=== PATIENT | female | born 1980 | race Caucasian/White ===

== ENCOUNTER 2016-10-31 13:00 | Emergency (ER) | payer MEDICAID ==
[~2016-10-31] VITALS: Ht 170.2 cm; Wt 65.0 kg
[~2016-10-31 13:00] MED LIST: CIPR500T4 PO; PRED5TAB PO; PREM1.25 PO; SUBO8MIS SL
[2016-10-31 13:03] VITALS: BP 148/84; PULSE 83; RESP 20; TEMP 97.7; O2SAT 97
--- NOTE | 2016-10-31 13:06 | PD ---
Physical Exam Time Seen by Provider: 13:04 Narrative 36yo F c/o left sided chest pain w/ SOB and heart palpitations for about 4 hours. Denies radiation of pain. Patient seen in triage. Awaiting bed placement. VS reviewed. Data Data Last Documented VS Vital Signs Date Time Temp Pulse Resp B/P Pulse Ox O2 Delivery O2 Flow Rate FiO2 10/31/16 13:03 97.7 83 20 148/84 97 MDM Supervised Visit with LUÍS: Chinyere Herndon October 31, 2016 13:06
[2016-10-31] MEDS ORDERED: SUBO2MIS SL (13:26)
[2016-10-31] MEDS ORDERED: ASPIRIN 81 MG CHEW TAB PO ONE (13:30)
[2016-10-31] MEDS ORDERED: SODIUM CHLORIDE 0.9% FLUSH 10 ML FLUSH IVF PRN (13:30)
--- NOTE | 2016-10-31 13:36 | PD ---
HPI Chief Complaint: Chest Pain Time Seen by Provider: 13:30 Travel History International Travel<30 days: No Contact w/Intl Traveler<30days: No Traveled to known affect area: No History of Present Illness HPI Patient comes in complaining of left-sided chest pain that that began this morning. Patient describes it as a pressure/palpitation and is constant. Pain is worse with certain movement. Denies anything making it better. Patient taking anything for this. Denies any nausea, vomiting, back pain, abdominal pain, headache, diaphoresis, fevers, numbness or tingling anywhere, hormone replacement therapy, or history of cardiac disease. Patient states only medication she takes on a daily basis is for Suboxone for opioid dependence. Patient denies a history of IV drug use. PFSH Past Medical History Hx Anticoagulant Therapy: No Cardiovascular Problems: No Chemotherapy: No Cerebrovascular Accident: No Diabetes: No Respiratory: No ?: Not : 3 Para: 2 Miscarriage: 1 Tubal Ligation: Yes Past Surgical History Gynecologic Surgery: Yes (ABLATIONS AND SURGERY FOR ENDOMETRIOSIS) Hysterectomy: Yes Social History Alcohol Use: Yes (GLASS WINE ON WEEKENDS) Tobacco Use: Yes (1 PACK EVERY 3 DAYS) Substance Use: No Allergies-Medications (Allergen,Severity, Reaction): Coded Allergies: No Known Allergies (Unverified , 01/17/15) Reported Meds & Prescriptions Reported Meds & Active Scripts Active Reported Suboxone Sublingual Film (Buprenorphine-Naloxone Sublingual Film) 2-0.5 Mg Film 1 Film SL DAILY Unique ID number required: Review of Systems Except as stated in HPI: all other systems reviewed are Neg Physical Exam Narrative GENERAL: Well-developed, well nourished, in no acute distress, and non-ill appearing. SKIN: Focused skin assessment warm and dry. HEAD: Atraumatic. Normocephalic. EYES: Pupils equal and round. EOMI. No scleral icterus. No injection or drainage. ENT: No nasal bleeding or discharge. Mucous membranes pink and moist. NECK: Trachea midline. No JVD. Supple. No nuclear rigidity. CARDIOVASCULAR: Regular rate and rhythm. No murmur appreciated. Radial pulses 2+, intact, and equal bilaterally. RESPIRATORY: No accessory muscle use. No respiratory distress. Clear to auscultation. Breath sounds equal bilaterally. MUSCULOSKELETAL: No obvious deformities. No clubbing. No cyanosis. No edema. Full range of motion. NEUROLOGICAL: Awake and alert. No obvious cranial nerve deficits. Motor grossly within normal limits. Normal speech. PSYCHIATRIC: Appropriate mood and affect; insight and judgment normal. Data Data Last Documented VS Vital Signs Date Time Temp Pulse Resp B/P Pulse Ox O2 Delivery O2 Flow Rate FiO2 10/31/16 16:39 80 16 119/83 99 10/31/16 13:55 Room Air 10/31/16 13:03 97.7 Orders Electrocardiogram (10/31/16 13:29) Basic Metabolic Panel (Bmp) (10/31/16 13:29) Ckmb (Isoenzyme) Profile (10/31/16 13:29) Complete Blood Count With Diff (10/31/16 13:29) D-Dimer (10/31/16 13:29) Magnesium (Mg) (10/31/16 13:29) Prothrombin Time / Inr (Pt) (10/31/16 13:29) Act Partial Throm Time (Ptt) (10/31/16 13:29) Troponin I (10/31/16 13:29) Chest, Single Ap (10/31/16 13:29) Ecg Monitoring (10/31/16 13:29) Bilateral Bp Monitoring (10/31/16 13:29) Iv Access Insert/Monitor (10/31/16 13:29) Oximetry (10/31/16 13:29) Oxygen Administration (10/31/16 13:29) Aspirin Chew (Aspirin Chew) (10/31/16 13:30) Sodium Chloride 0.9% Flush (Ns Flush) (10/31/16 13:30) CKMB (10/31/16 13:30) CKMB% (10/31/16 13:30) Electrocardiogram (10/31/16 15:15) Ckmb (Isoenzyme) Profile (10/31/16 15:15) Troponin I (10/31/16 15:15) CKMB (10/31/16 16:10) CKMB% (10/31/16 16:10) Labs Laboratory Tests Test 10/31/16 10/31/16 13:30 16:10 White Blood Count 9.5 TH/MM3 Red Blood Count 4.75 MIL/MM3 Hemoglobin 14.7 GM/DL Hematocrit 44.3 % Mean Corpuscular Volume 93.5 FL Mean Corpuscular Hemoglobin 31.1 PG Mean Corpuscular Hemoglobin 33.2 % Concent Red Cell Distribution Width 13.3 % Platelet Count 193 TH/MM3 Mean Platelet Volume 8.8 FL Neutrophils (%) (Auto) 47.3 % Lymphocytes (%) (Auto) 43.0 % Monocytes (%) (Auto) 7.0 % Eosinophils (%) (Auto) 2.0 % Basophils (%) (Auto) 0.7 % Neutrophils # (Auto) 4.5 TH/MM3 Lymphocytes # (Auto) 4.1 TH/MM3 Monocytes # (Auto) 0.7 TH/MM3 Eosinophils # (Auto) 0.2 TH/MM3 Basophils # (Auto) 0.1 TH/MM3 CBC Comment DIFF FINAL Differential Comment Prothrombin Time 10.5 SEC Prothromb Time International 1.0 RATIO Ratio Activated Partial 27.1 SEC Thromboplast Time D-Dimer Quantitative (PE/DVT) 0.47 MG/L FEU Sodium Level 135 MEQ/L Potassium Level 3.4 MEQ/L Chloride Level 97 MEQ/L Carbon Dioxide Level 29.7 MEQ/L Anion Gap 8 MEQ/L Blood Urea Nitrogen 12 MG/DL Creatinine 0.79 MG/DL Estimat Glomerular Filtration 81 ML/MIN Rate Random Glucose 85 MG/DL Calcium Level 10.3 MG/DL Magnesium Level 2.0 MG/DL Total Creatine Kinase 483 U/L 379 U/L Creatine Kinase MB 13.9 NG/ML 11.4 NG/ML Creatine Kinase MB % 2.9 % 3.0 % Troponin I LESS THAN 0.02 LESS THAN 0.02 NG/ML NG/ML MDM Medical Decision Making Medical Screen Exam Complete: Yes Emergency Medical Condition: Yes Interpretation(s) EKG reviewed by Dr. Smith shows sinus rhythm with a ventricular rate of 74. No STEMI. Chest x-ray read by the radiologist: Normal examination. Repeat EKG reviewed by Dr. Smith shows sinus rhythm with ventricular is 76. No STEMI. Differential Diagnosis Acute coronary syndrome, atypical chest pain, PE, pneumonia, musculoskeletal pain, other Narrative Course Patient was placed on monitoring manager, IV was established, EKG is obtained, and patient was given aspirin by mouth. Initial laboratory and radiological studies were ordered. 1500 patient resting comfortably in bed in no acute distress. Reports symptoms have improved greatly since being in the emergency department. Discussed all findings and plan of care for repeat troponin and EKG and if found to be negative patient will be discharged home for outpatient follow-up. Patient is agreeable to this. All questions were answered. The patients chest pain by history and evaluation appears noncardiac, nor noncardiopulmonary in etiology. Evaluation revealed no evidence of cardiac involvement at this time. There is no clinical evidence to suggest thoracic aortic aneurysm or pathology, nor evidence to suggest pulmonary embolism, pericarditis, pneumothorax, nor pneumonia at this time. The patient has minimal risk factors for cardiac disease, pulmonary embolism or aortic disease. Clinical suspicion was discussed with patient and the patient was referred to and instructed to follow up with primary care doctor for possible medical management specialist referral for potential outpatient evaluation. I discussed this management with the patient and the patient understands the importance or acute follow up with primary care provider. The patient was instructed to return at any time if chest pain recurs, persists, changes or worsens in anyway while awaiting follow up. The patient agreed with plan. Patient in no obvious distress upon re-evaluation. All pertinent laboratory/ Radiology result(s) discussed with patient. Discussed patient with Dr. Smith prior to discharge, who is in agreement with plan of care and disposition. Any questions/concerns in reference to patient diagnosis/condition discussed and clarified prior to patient's discharge. Reinforced sheer importance of close follow up with patient's primary physician or primary care clinic. Instructed patient to return to ED immediately, if symptoms return/worsen. Pt showed understanding of above instructions. Further instructions and recommendations were detailed in discharge paperwork. Pt ambulated without difficulty out of ED at discharge. Diagnosis Primary Impression: Chest pain, non-cardiac Patient Instructions: General Instructions, Noncardiac Chest Pain (ED) Additional Instructions: Follow-up with your primary care physician in one to 4 days for reevaluation. Take all medication as prescribed. Return to the emergency department if symptoms get worse. Disposition: 01 DISCHARGE HOME Condition: Stable Garett Nye October 31, 2016 13:35
[2016-10-31 13:42] VITALS: BP_SYST 154; BP_SYST 160; BP_DIAS 89; BP_DIAS 96; PULSE 79; O2SAT 97
--- NOTE | 2016-10-31 13:55 | RADRPT ---
EXAM DATE/TIME: 10/31/2016 13:29 [facility] COMPARISON: No previous studies available for comparison. INDICATIONS : Chest pain MEDICAL HISTORY : None. SURGICAL HISTORY : None. ENCOUNTER: Initial ACUITY: 1 day PAIN SCORE: 4/10 LOCATION: Bilateral chest FINDINGS: A single view of the chest demonstrates the lungs to be symmetrically aerated without evidence of mas s, infiltrate or effusion. The cardiomediastinal contours are unremarkable. Osseous structures are intact. CONCLUSION: Normal examination. Mathew Hloder MD on October 31, 2016 at 13:53 Board Certified Radiologist. This report was verified electronically.
[2016-10-31 13:59] LABS: AUTOMATED NEUTROPHIL # 4.5 TH/MM3 (1.8-7.7); BASOPHIL # 0.1 TH/MM3 (0-0.2); BASOPHIL % 0.7 % (0.0-2.0); EOSINOPHIL # 0.2 TH/MM3 (0-0.4); HEMATOCRIT 44.3 % (35.0-46.0); HEMO FLAGS DIFF FINAL; LYMPHOCYTE # 4.1 TH/MM3 (1.0-4.8); MEAN CELL VOLUME 93.5 FL (80.0-100.0); MEAN CORPUSCULAR HEMOGLOBIN 31.1 PG (27.0-34.0); MEAN CORPUSCULAR HGB CONC 33.2 % (32.0-36.0); NEUT % 47.3 % (16.0-70.0); PLATELET COUNT 193 TH/MM3 (150-450); RED BLOOD COUNT 4.75 MIL/MM3 (4.00-5.30); RED CELL DISTRIBUTION WIDTH 13.3 % (11.6-17.2); WHITE BLOOD COUNT 9.5 TH/MM3 (4.0-11.0)
[2016-10-31 14:12] LABS: ANION GAP 8 MEQ/L (5-15); BICARBONATE 29.7 MEQ/L (21.0-32.0); BLOOD UREA NITROGEN 12 MG/DL (7-18); CHLORIDE 97 MEQ/L (98-107); GLOMERULAR FILTRATION RATE 81 ML/MIN (>89); POTASSIUM 3.4 MEQ/L (3.5-5.1); SODIUM (NA) 135 MEQ/L (136-145)
[2016-10-31 14:15] LABS: CREATINE KINASE 483 U/L (26-192)
[2016-10-31 14:21] LABS: APTT (PATIENT) 27.1 SEC (24.3-30.1); PROTHROMBIN TIME - PATIENT 10.5 SEC (9.8-11.6)
[2016-10-31 14:28] LABS: CKMB 13.9 NG/ML (0.5-3.6)
[2016-10-31 16:39] VITALS: BP 119/83; PULSE 80; RESP 16; O2SAT 99
[2016-10-31 16:57] LABS: CREATINE KINASE 379 U/L (26-192)
[2016-10-31 17:09] LABS: CKMB 11.4 NG/ML (0.5-3.6)
--- NOTE | 2016-11-01 21:42 | EKG ---
Date Performed: 10/31/2016 Time Performed: 16:35:09 PTAGE: 36 years EKG: Sinus rhythm NORMAL ECG PREVIOUS TRACING : 10/31/2016 13.25 Compared to prior tracing no significant change DOCTOR: Ari Renee Interpretating Date/Time 11/01/2016 21:41:47
--- NOTE | 2016-11-01 21:50 | EKG ---
Date Performed: 10/31/2016 Time Performed: 13:25:00 PTAGE: 36 years EKG: Sinus rhythm WITH SINUS ARRHYTHMIA NORMAL ECG NO PREVIOUS TRACING DOCTOR: Ari Renee Interpretating Date/Time 11/01/2016 21:49:51
== END 2016-10-31 17:28 | disposition home or self-care (01) ==
LOC: NEPD 13:00
DX: R07.89 Other chest pain (principal); Z72.0 Tobacco use; Z79.899 Other long term (current) drug therapy
CPT/HCPCS: 71010; 80048; 82550; 82552; 83735; 84484; 85025; 85379; 85610; 85730; 93005

== ENCOUNTER 2017-01-31 22:35 | Emergency (ER) | payer MEDICAID ==
[~2017-01-31] VITALS: Ht 170.2 cm; Wt 62.0 kg
[~2017-01-31 22:35] MED LIST changes: -CIPR500T4 PO; -PRED5TAB PO; -PREM1.25 PO; +SUBO2MIS SL; -SUBO8MIS SL
[2017-01-31 22:37] VITALS: BP 116/90; PULSE 83; RESP 16; TEMP 97.5; O2SAT 96
[2017-01-31] MEDS ORDERED: SUBO8MIS SL (23:04)
--- NOTE | 2017-01-31 23:04 | PD ---
HPI Chief Complaint: Laceration/Skin Injury Time Seen by Provider: 22:50 Travel History International Travel<30 days: No Contact w/Intl Traveler<30days: No Traveled to known affect area: No History of Present Illness HPI 36-year-old female presents with a laceration to the chin. Prior to arrival she slipped on a wet floor and fell, striking her chin on the ground. No loss of consciousness. She has a small laceration to the chin which is mildly painful. Denies any other injuries and she has no other complaints. Last tetanus vaccination unknown. [facility] Past Medical History Medical History: Denies Significant Hx Hx Anticoagulant Therapy: No Cardiovascular Problems: No Chemotherapy: No Cerebrovascular Accident: No Diabetes: No Respiratory: No Tetanus Vaccination: Unknown Influenza Vaccination: No ?: Not : 3 Para: 2 Miscarriage: 1 Tubal Ligation: Yes Past Surgical History Gynecologic Surgery: Yes (ABLATIONS AND SURGERY FOR ENDOMETRIOSIS) Hysterectomy: Yes Social History Alcohol Use: Yes (GLASS WINE ON WEEKENDS) Tobacco Use: Yes (1/2 ppd) Substance Use: No Allergies-Medications (Allergen,Severity, Reaction): Coded Allergies: No Known Allergies (Unverified , 01/31/17) Reported Meds & Prescriptions Reported Meds & Active Scripts Active Reported Suboxone Sublingual Film (Buprenorphine-Naloxone Sublingual Film) 8-2 Mg Film 1 Film SL Unique ID number required: Review of Systems Except as stated in HPI: all other systems reviewed are Neg Physical Exam Narrative GENERAL: Well-nourished female in no acute distress SKIN: Warm and dry. 1 cm horizontal laceration to the chin. HEAD: Atraumatic. Normocephalic. EYES: Pupils equal and round. No scleral icterus. No injection or drainage. ENT: No nasal bleeding or discharge. Mucous membranes pink and moist. NECK: Trachea midline. No JVD. CARDIOVASCULAR: Regular rate and rhythm. No murmur appreciated. RESPIRATORY: No accessory muscle use. Clear to auscultation. Breath sounds equal bilaterally. MUSCULOSKELETAL: No obvious deformities. NEUROLOGICAL: Awake and alert. No obvious cranial nerve deficits. Motor grossly within normal limits. Normal speech. Data Data Last Documented VS Vital Signs Date Time Temp Pulse Resp B/P Pulse Ox O2 Delivery O2 Flow Rate FiO2 01/31/17 23:04 16 01/31/17 22:37 97.5 83 116/90 96 Room Air Orders Tetanus/Diphtheria Tox Adult (Tetanus/Di (01/31/17 23:15) Lidocai-Epi 1%-1:100,000 Inj (Xylocaine- (01/31/17 23:15) Lidocaine Pf 1% Inj (Xylocaine-Mpf 1% In (01/31/17 23:15) MDM Medical Decision Making Medical Screen Exam Complete: Yes Emergency Medical Condition: Yes Medical Record Reviewed: Yes Differential Diagnosis Laceration, open fracture, puncture wound Narrative Course The patient has a small laceration to the chin with no evidence of bony involvement. The laceration wires repair, she will verbally consents. Tetanus status updated. Appears Procedures Procedure Narrative LACERATION LOCATION: Chin LENGTH: 1 cm NUMBER OF STITCHES/WILLIAN: 3 REPAIR: The area of the laceration was prepped with Betadine and sterilely draped. The laceration was infiltrated with 1% lidocaine. The wound was copiously irrigated and explored without evidence of foreign body, tendon injury or neurovascular injury. The wound was closed using 6-0 PROLENE simple interrupted. This was a single layer repair. A sterile dressing was applied. The patient was advised to keep the dressing clean and dry. Patient tolerated the procedure well. Diagnosis Primary Impression: Chin laceration Qualified Code: S01.81XA - Chin laceration, initial encounter Additional Instructions: Wash the wound with soap and water and apply antibiotic cream daily. Return in 5-6 days for suture removal. Med/Other Pt SpecificInfo: Wound Care Disposition: DISCHARGE HOME Condition: Stable Fam Julio Jan 31, 2017 23:04
[2017-01-31] MEDS ORDERED: LIDOCAINE 1%/EPINEPHrine 1:100,000 SOLN 20 ML VIAL INFIL ONE (23:15)
[2017-01-31] MEDS ORDERED: TETANUS/DIPHTHERIA TOXOID ADULT 0.5 ML VIAL IM ONE (23:15)
[2017-01-31] MEDS ORDERED: LIDOCAINE HCL 1% PF 30 ML VIAL INFIL ONE (23:15)
== END 2017-01-31 23:42 | disposition home or self-care (01) ==
LOC: NEPD 22:35
DX: S01.81XA Laceration without foreign body of other part of head, initial encounter (principal); W01.0XXA Fall on same level from slipping, tripping and stumbling without subsequent striking against object, initial encounter; Y92.009 Unspecified place in unspecified non-institutional (private) residence as the place of occurrence of the external cause; F17.290 Nicotine dependence, other tobacco product, uncomplicated; Z23 Encounter for immunization
CPT/HCPCS: 12011; 90714; 96372